=== PATIENT | female | born 1995 | race Two or more races ===

== ENCOUNTER 2019-07-15 18:41 | Emergency (ER) | payer OTHER ==
[~2019-07-15] VITALS: Ht 172.7 cm; Wt 97.5 kg
--- OUTSIDE RECORDS SUMMARY | 2019-07-15 18:44 | XMS REPORT | Summary of Care ---
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 [facility] [address] [place] [address] Thrombosed external hemorrhoid (Primary Dx); Hemorrhoids, unspecified hemorrhoid type; Pyelonephritis 05/25/2019 Emergency [facility] Department [address] [place] [address] Allergies No Known Allergiesdocumented as of this encounter (statuses as of 05/25/2019) Medications End Date Status Medication Sig Dispensed Refills Start Date Active DULoxetine 60 mg capsule Take 60 mg by 0 mouth daily. Active amphetamine-dextroampheta Take 40 mg by 0 mine (ADDERALL XR) 20 mg mouth every 24 hr capsule morning. Active acetaminophen-codeine Take 1 tablet 30 tablet 0 300-30 mg by mouth 9 tabletIndications: every 4 Pyelonephritis (four) hours as needed for Pain (scale 7-10). Active polyethylene glycol Take 17 g by 1 Bottle 0 (MIRALAX) 17 gram/dose mouth daily. 9 powderIndications: Thrombosed external hemorrhoid 05/25/2019 Discontinued acetaminophen-codeine Take 1 tablet 30 tablet 0 300-30 mg by mouth 9 tabletIndications: every 4 Pyelonephritis (four) hours as needed for Pain (scale 7-10). documented as of this encounter (statuses as of 05/25/2019) Active Problems Problem Noted Date Obesity (BMI 30-39.9) 03/23/2019 Pyelonephritis 03/22/2019 documented as of this encounter (statuses as of 05/25/2019) Social History Date Tobacco Use Types Packs/Day Years Used Current Every Day Smoker Smokeless Tobacco: Never Used Comments: 1 pack a week for ~2 years Drinks/Week oz/Week Comments Alcohol Use No Sex Assigned at Date Recorded Not on file Industry Job Start Date Occupation Not on file Not on file Not on file Travel End Travel History Travel Start No recent travel history available. documented as of this encounter Last Filed Vital Signs Reading Time Taken Comments Vital Sign 149/92 05/25/2019 10:15 PM CDT Blood Pressure 79 05/25/2019 10:15 PM CDT Pulse 37 C (98.6 F) 05/25/2019 10:15 PM CDT Temperature 18 05/25/2019 10:15 PM CDT Respiratory Rate 100% 05/25/2019 10:15 PM CDT Oxygen Saturation - - Inhaled Oxygen Concentration 96.2 kg (212 lb) 05/25/2019 9:18 PM CDT Weight 170.2 cm (5' 7") 05/25/2019 9:18 PM CDT Height 33.2 05/25/2019 9:18 PM CDT Body Mass Index documented in this encounter Discharge Instructions * Instructions* Akash Gr MD - 05/25/2019 Please return to the ER for reevaluation if you experience excessive bleeding, u ncontrolled pain, drainage, increased swelling, fevers chills or other concernin g symptoms. Please follow-up with your primary care doctor in the following week for reevalu ation. * Attachments The following attachments cannot be sent through Care Everywhere.* Hemorrhoids, Thrombosed ([place]) documented in this encounter Plan of Treatment Health Maintenance Due Date Last Done Comments PNEUMOCOCCAL 0-64 YEARS 2002 COMBINED SERIES (1 of 1 - PPSV23) MENINGOCOCCAL B VACCINES 2006 (1 of 2 - Risk Bexsero 2-dose series) VARICELLA VACCINES (1 of 2009 2 - 13+ 2-dose series) HPV VACCINES (1 - Female 12/10/2011 3-dose series) CHLAMYDIA SCREENING 2012 DTaP,Tdap,and Td Vaccines 12/10/2015 (1 - Tdap) PAP SMEAR 2017 INFLUENZA VACCINE 05/08/2019 (Retired version) MENINGOCOCCAL VACCINE Aged Out No longer eligible based on patient's age to complete this topic documented as of this encounter Procedures Comments Procedure Name Priority Date/Time Associated Diagnosis GENERAL Routine 05/25/2019 10:13 PM CDT documented in this encounter Results * General (05/25/2019 10:13 PM CDT) Narrative Performed At Akash Gr MD 05/25/2019 10:16 PM General Date/Time: 05/25/2019 10:15 PM Performed by: Akash Gr MD Authorized by: Akash Gr MD Consent: Consent obtained:Verbal Consent given by:Patient Risks discussed:Bleeding, incomplete drainage, infection and pain Alternatives discussed:No treatment Indications: Indications:Thrombosed external hemorrhoid Pre-procedure details: Skin preparation:Betadine Anesthesia (see MAR for exact dosages): Anesthesia method:Local infiltration Local anesthetic:Lidocaine 1% WITH epi Post-procedure details: Patient tolerance of procedure:Tolerated well, no immediate complications Comments: Patient was placed in left lateral decubitus position. Rectal area was cleansed with Betadine topical solution. External thrombosed hemorrhoid was incised with a 10 blade, to an elliptical incisions emanating radially from the rectum. Clot and portion of the distended venous plexus removed en bloc. Patient tolerated procedure well, small amount of bleeding well controlled with local epinephrine and pressure. documented in this encounter Visit Diagnoses Diagnosis Thrombosed external hemorrhoid - Primary External thrombosed hemorrhoids Hemorrhoids, unspecified hemorrhoid type Pyelonephritis Pyelonephritis, unspecified documented in this encounter Insurance Type Payer Benefit Subscriber ID Effective Phone Address Plan / Dates Group [id number] 2011-P resent documented as of this encounter
--- OUTSIDE RECORDS SUMMARY | 2019-07-15 18:44 | XMS REPORT ---
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 Allergies, Adverse Reactions, Alerts Allergy Name Allergy Type Status Severity Reaction(s) Onset Date Inactive Date Treating Clinician Comments No Known Allergies DA Active U 2019-03-22 00:00:00 No Known Allergies DA Active U 2013-07-06 00:00:00 Medications This patient has no known medications. Results Test Description Test Time Test Comments Text Results Atomic Results Result Comments HCG SERUM BETA 2019-06-20 14:31:00 HCG SERUM BETA (test code=HCG) 259.0 mIU/ml 0-5.0 INTERPRETATION:B-HCG LEVELS <6 SHOULD BE CONSIDERED "NEGATIVE."VALUES BETWEEN 6-25 MIU/ML NEED TO BE RETESTED WITHIN 48hrs. 0-1 WEEKS AFTER CONCEPTION 0-50 MIU/ML1-2 WEEKS AFTER CONCEPTION 40-300 MIU/ML2-3 WEEKS AFTER CONCEPTION 100-1,000 MIU/ML3-4 WEEKS AFTER CONCEPTION 500-6,000 MIU/ML1-2 MONTHS AFTER CONCEPTION 5,000-200,000 MIU/ML2-3 MONTHS AFTER CONCEPTION 10,000-100,000 MIU/ML2ND TRIMESTER 3,000-50,000 MIU/ML3RD TRIMESTER 1,000-50,000 MIU/ML - US PELVIS [id number] 17:35:00 Name: BRANDIN DIXON [facility] : 1995 Age/S: 23 / F [address] 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 COMPARISON: No recent images available Transabdominal and transvaginal (for better endometrial and ovarian evaluation) pelvic ultrasound with color and Doppler flow and grayscale imaging. Anteverted uterus measured 10.1 x 4.8 x 5.6 cm. Thickened endometrium at 1.7 cm. No IUP. Correlate with serial beta-hCG. No fibroids. Visualized cervix is normal. Color Doppler flow with normal spectral waveform in either ovary. Right ovary measured 2.8 x 1.7 x 2.1 cm. Left ovary measured 3.2 x 2.3 x 2.2 cm. Trace free fluid. IMPRESSION: Thickened endometrium at 1.7 cm. No IUP. Correlate with serial beta- hCG. No fibroids. Normal ovaries with color Doppler flow. at 1732 Reported and signed by: Charly De La Vega M.D. CC: Analy Head NP Technologist: Claudia Mcdonald RDMS Trnscb Date/Time: 06/18/2019 (1735) [email or web address] Orig Print D/T: S: 06/18/2019 (1123) Probe: PAGE 1 Signed Report - US TRANSVAGINAL NON [id number] 17:35:00 [facility] 1995 [facility] [address] 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 COMPARISON: No recent images available Transabdominal and transvaginal (for better endometrial and ovarian evaluation) pelvic ult rasound with color and Doppler flow and grayscale imaging. A nteverted uterus measured 10.1 x 4.8 x 5.6 cm. Thickened endometri um at 1.7 cm. No IUP. Correlate with serial beta-hCG. No fibroids. Vis ualized cervix is normal. Color Doppler flow with normal spectral wavefor m in either ovary. Right ovary measured 2.8 x 1.7 x 2.1 cm. Left ovary m easured 3.2 x 2.3 x 2.2 cm. Trace free fluid. IMPRESSION: Thickened endometrium at 1.7 cm. No IUP. Correlate with ser ial beta-hCG. No fibroids. Normal ovaries with color Doppler flow. at 5631 Reported and signed by: Charly De La Vega M.D. CC: Analy Head NP Technologist: Claudia Mcdonald RDMS Trnvab Date/Time: 06/18/2019 (1 804) [email or web address] Orig Print D/T: S: 06/18/2019 (0815) P robe: [id number] PAGE 1 Signed Report - DUP AB/PEL/SC [id number] 17:35:00 Name: BRANDIN DIXON [facility] : 1995 Age/S: 23 / F [address] 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 COMPARISON: No recent images available Transabdominal and transvaginal (for better endometrial and ovarian evaluation) pelvic ult rasound with color and Doppler flow and grayscale imaging. A nteverted uterus measured 10.1 x 4.8 x 5.6 cm. Thickened endometri um at 1.7 cm. No IUP. Correlate with serial beta-hCG. No fibroids. Vis ualized cervix is normal. Color Doppler flow with normal spectral wavefor m in either ovary. Right ovary measured 2.8 x 1.7 x 2.1 cm. Left ovary m easured 3.2 x 2.3 x 2.2 cm. Trace free fluid. IMPRESSION: Thickened endometrium at 1.7 cm. No IUP. Correlate with ser ial beta-hCG. No fibroids. Normal ovaries with color Doppler flow. at 8545 Reported and signed by: Charly De La Vega M.D. CC: Analy Head NP Technologist: Claudia Mcdonald RDMS [facility] Date/Time: 06/18/2019 (8 102) [email or web address] Orig Print D/T: S: 06/18/2019 (9935) P katarina: PAGE 1 Signed Report BASIC METABOLIC [id number] 16:42:00* Test Item Value Reference Range Comments SODIUM (test code=NA) 140 mmol/L 136-145 POTASSIUM (test code=K) 3.8 mmol/L 3.5-5.1 CHLORIDE (test code=CL) 105 mmol/L 101-109 CARBON DIOXIDE (test code=CO2) 28.2 mmol/L 21-32 ANION GAP (test code=GAP) 11 mmol/L 10-20 GLUCOSE (test code=GLU) 107 mg/dL 74-106 BLOOD UREA NITROGEN (test code=BUN) 9 mg/dL 3-21 GLOMERULAR FILTRATION RATE (test code=GFR) > 60 mL/min >=60 Estimated GFR by using Modified MDRD formula.Chronic kidney disease is defined as either kidney damageor GFR <60 mL/min/1.73 m2 for >3 months. CREATININE (test code=CREAT) 0.59 mg/dL 0.55-1.3 BUN/CREATININE RATIO (test code=BUN/CREA) 15.3 10-20 CALCIUM (test code=CA) 8.3 mg/dL 8.4-10.2 HCG SERUM [id number] 16:42:00* Test Item Value Reference Range Comments HCG SERUM BETA (test code=HCG) 103.0 mIU/ml 0-5.0 INTERPRETATION:B-HCG LEVELS <6 SHOULD BE CONSIDERED "NEGATIVE."VALUES BETWEEN 6-25 MIU/ML NEED TO BE RETESTED WITHIN 48hrs. 0-1 WEEKS AFTER CONCEPTION 0-50 MIU/ML1-2 WEEKS AFTER CONCEPTION 40-300 MIU/ML2-3 WEEKS AFTER CONCEPTION 100-1,000 MIU/ML3-4 WEEKS AFTER CONCEPTION 500-6,000 MIU/ML1-2 MONTHS AFTER CONCEPTION 5,000-200,000 MIU/ML2-3 MONTHS AFTER CONCEPTION 10,000-100,000 MIU/ML2ND TRIMESTER 3,000-50,000 MIU/ML3RD TRIMESTER 1,000-50,000 MIU/ML BASIC METABOLIC [id number] 16:29:00* Test Item Value Reference Range Comments SODIUM (test code=NA) 140 mmol/L 136-145 POTASSIUM (test code=K) 3.8 mmol/L 3.5-5.1 CHLORIDE (test code=CL) 105 mmol/L 101-109 CARBON DIOXIDE (test code=CO2) 28.2 mmol/L 21-32 ANION GAP (test code=GAP) 11 mmol/L 10-20 GLUCOSE (test code=GLU) 107 mg/dL 74-106 BLOOD UREA NITROGEN (test code=BUN) 9 mg/dL 3-21 GLOMERULAR FILTRATION RATE (test code=GFR) > 60 mL/min >=60 Estimated GFR by using Modified MDRD formula.Chronic kidney disease is defined as either kidney damageor GFR <60 mL/min/1.73 m2 for >3 months. CREATININE (test code=CREAT) 0.59 mg/dL 0.55-1.3 BUN/CREATININE RATIO (test code=BUN/CREA) 15.3 10-20 CALCIUM (test code=CA) 8.3 mg/dL 8.4-10.2 HCG SERUM [id number] 16:29:00* Test Item Value Reference Range Comments HCG SERUM BETA (test code=HCG) mIU/mL <10 CBC W/O [id number] 16:21:00* Test Item Value Reference Range Comments WHITE BLOOD CELL (test code=WBC) 8.1 K/mm3 4.5-12.5 RED BLOOD CELL (test code=RBC) 4.20 mill/mm3 3.7-5.2 HEMOGLOBIN (test code=HGB) 12.5 gram/dL 11.5-15.5 HEMATOCRIT (test code=HCT) 37.4 % 36.0-46.0 MEAN CELL VOLUME (test code=MCV) 89.0 fL 80-98 MEAN CELL HGB (test code=MCH) 29.8 picogram 27.0-33.0 MEAN CELL HGB CONCETRATION (test code=MCHC) 33.4 gram/dL 33.0-36.0 RED CELL DISTRIBUTION WIDTH (test code=RDW) 12.3 % 11.6-16.2 RED CELL DISTRIBUTION WIDTH SD (test code=RDW-SD) 40.8 fL 37.0-51.0 PLATELET COUNT (test code=PLT) 310 K/mm3 150-450 MEAN PLATELET VOLUME (test code=MPV) 10.0 fL 6.7-11.0 URINALYSIS [id number] 15:58:00* Test Item Value Reference Range Comments UA COLOR (test code=COLU) YELLOW YELLOW UA APPEARANCE (test code=APPU) CLEAR CLEAR UA GLUCOSE DIPSTICK (test code=DGLUU) norm mg/dL NEGATIVE UA BILIRUBIN DIPSTICK (test code=BILU) NEGATIVE mg/dL NEGATIVE UA KETONE DIPSTICK (test code=KETU) neg mg/dL NEGATIVE UA SPECIFIC GRAVITY (test code=SGU) 1.020 1.001-1.035 UA BLOOD DIPSTICK (test code=ASHLEY) 10 (Trace) Tarik/uL NEGATIVE UA PH DIPSTICK (test code=ALBA) 5.0 5.0-8.0 UA PROTEIN DIPSTICK (test code=PROU) neg mg/dL Neg-15 UA UROBILINIOGEN DIPSTICK (test code=URO) norm mg/dL 0.0-0.2 UA NITRITE DIPSTICK (test code=STALIN) NEGATIVE NEGATIVE UA LEUKOCYTE ESTERASE DIPSTICK (test code=LEUU) 25 Alisa/uL (Trace) uL NEGATIVE UA WBC (test code=WBCU) 5-10 per HPF 0-5 UA RBC (test code=RBCU) 0-3 per HPF 0-5 UA EPITHELIAL CELLS (test code=EPIU) Few (2-5/hpf) per HPF Few UA BACTERIA (test code=BACU) FEW per HPF NONE UA MUCUS (test code=MUCU) FEW per LPF NONE-FEW Urine Source? Clean CatchUR HCG [id number] 15:58:00* Test Item Value Reference Range Comments UR HCG QUAL (test code=HCGQLU) POSITIVE This HCGQL test is NOT applicable for MALE patients.Check with nurse about probable order error.If Tumor Marker Test needed, nurse should order test "HCGTU"(Test #[id number]) Urine Source? Clean CatchURINALYSIS [id number] 15:56:00* Test Item Value Reference Range Comments UA COLOR (test code=COLU) YELLOW YELLOW UA APPEARANCE (test code=APPU) CLEAR CLEAR UA GLUCOSE DIPSTICK (test code=DGLUU) norm mg/dL NEGATIVE UA BILIRUBIN DIPSTICK (test code=BILU) NEGATIVE mg/dL NEGATIVE UA KETONE DIPSTICK (test code=KETU) neg mg/dL NEGATIVE UA SPECIFIC GRAVITY (test code=SGU) 1.020 1.001-1.035 UA BLOOD DIPSTICK (test code=ASHLEY) 10 (Trace) Tarik/uL NEGATIVE UA PH DIPSTICK (test code=ALBA) 5.0 5.0-8.0 UA PROTEIN DIPSTICK (test code=PROU) neg mg/dL Neg-15 UA UROBILINIOGEN DIPSTICK (test code=URO) norm mg/dL 0.0-0.2 UA NITRITE DIPSTICK (test code=STALIN) NEGATIVE NEGATIVE UA LEUKOCYTE ESTERASE DIPSTICK (test code=LEUU) 25 Alisa/uL (Trace) uL NEGATIVE UA WBC (test code=WBCU) per HPF 0-5 UA RBC (test code=RBCU) per HPF 0-5 UA EPITHELIAL CELLS (test code=EPIU) per HPF Few UA BACTERIA (test code=BACU) per HPF NONE Urine Source? Clean CatchUR HCG [id number] 15:56:00* Test Item Value Reference Range Comments UR HCG QUAL (test code=HCGQLU) Urine Source? Clean Catch
[2019-07-15 19:15] LABS: PREGNANCY TEST, URINE POSITIVE (NEGATIVE)
[2019-07-15 19:18] LABS: BILIRUBIN,URINE NEGATIVE (NEGATIVE); CLARITY,URINE CLEAR (CLEAR); COLOR,URINE YELLOW (YELLOW); KETONES,URINE NEGATIVE (NEGATIVE); LEUKOCYTE ESTERASE ,URINE NEGATIVE (NEGATIVE); NITRITE,URINE NEGATIVE (NEGATIVE); PROTEIN,URINE DIPSTICK NEGATIVE (NEGATIVE); URINE UROBILINOGEN 0.2 mg/dL (0.2 - 1)
[2019-07-15 19:30] LABS: BACTERIA,URINE FEW /HPF; EPITHELIAL CELLS,URINE MODERATE /LPF
[2019-07-15 20:08] VITALS: BP 123/64
== END 2019-07-15 20:14 | disposition home or self-care (01) ==
LOC: ER 18:41
DX: O23.11 Infections of bladder in pregnancy, first trimester (principal); Z3A.08 8 weeks gestation of pregnancy
CPT/HCPCS: 81001; 81025; 87086; 99283

== ENCOUNTER 2021-12-16 20:09 | Emergency (ER) | payer OTHER ==
[~2021-12-16] VITALS: Ht 172.7 cm; Wt 97.5 kg
[2021-12-16 21:15] LABS: CLARITY,URINE SL CLOUDY (CLEAR); COLOR,URINE YELLOW (YELLOW); LEUKOCYTE ESTERASE ,URINE NEGATIVE (NEGATIVE); NITRITE,URINE NEGATIVE (NEGATIVE); PROTEIN,URINE DIPSTICK NEGATIVE (NEGATIVE)
[2021-12-16 21:16] LABS: KETONES,URINE NEGATIVE (NEGATIVE); URINE UROBILINOGEN 0.2 mg/dL (0.2 - 1)
[2021-12-16 21:27] LABS: BACTERIA,URINE MODERATE /HPF; EPITHELIAL CELLS,URINE MANY /LPF
== END 2021-12-16 22:25 | disposition home or self-care (01) ==
LOC: ER 20:38
DX: O26.891 Other specified pregnancy related conditions, first trimester (principal); R10.9 Unspecified abdominal pain
CPT/HCPCS: 36415; 81001; 84702; 99283

== ENCOUNTER 2022-10-16 10:41 | Emergency (ER) | payer OTHER ==
[~2022-10-16] VITALS: Ht 172.7 cm; Wt 97.5 kg
[2022-10-16] MEDS ORDERED: AMOXICILLIN500 MG PO (11:40)
[2022-10-16] MEDS ORDERED: DEXAMETHASONE 4 MG TAB PO STA (11:50)
[2022-10-16] MEDS ORDERED: PENICILLIN G BENZATHINE LA 1.2 MU TBX IM STA (11:50)
== END 2022-10-16 12:13 | disposition home or self-care (01) ==
LOC: ER 10:53
DX: J02.0 Streptococcal pharyngitis (principal); Z20.822 Contact with and (suspected) exposure to COVID-19
CPT/HCPCS: 83518; 99283; J0561; J8540; U0002

== ENCOUNTER 2023-06-30 20:51 | Emergency (ER) | payer BC, OTHER ==
[~2023-06-30] VITALS: Ht 172.7 cm; Wt 97.5 kg
[~2023-06-30 20:51] MED LIST: AMOXICILLIN500 MG PO
[2023-06-30 21:24] LABS: STREPTOCOCCUS GRP A ANTIGEN POSITIVE (NEGATIVE)
[2023-06-30] MEDS ORDERED: PENICILLIN G BENZATHINE LA 1.2 MU TBX IM STA (21:27)
[2023-06-30 21:30] LABS: INFLUENZAE A&B ANTIGEN (RAPID) NEGATIVE (NEGATIVE)
[2023-06-30 21:53] VITALS: PULSE 91; RESP 16; TEMP 99.1; O2SAT 100
== END 2023-06-30 21:54 | disposition home or self-care (01) ==
LOC: ER 21:00
DX: R50.9 Fever, unspecified (principal); J02.0 Streptococcal pharyngitis; R51.9 Headache, unspecified; Z20.822 Contact with and (suspected) exposure to COVID-19
CPT/HCPCS: 83518; 87400; 99283; J0561; U0002